=== PATIENT | male | born 1970 | race Caucasian/White ===

== ENCOUNTER 2017-07-16 12:05 | Emergency (ER) | payer OTHER ==
[~2017-07-16] VITALS: Ht 170.2 cm; Wt 111.1 kg
[~2017-07-16 12:05] MED LIST: ALLO100T56 PO; ALPR0.5T PO; COLC0.6T67 PO; OMEP20TA5 PO; SUCR1TAB31 PO
--- NOTE | 2017-07-16 12:55 | NUR ---
PT IS IN ROOM #2A. DR KOHLER EVALUATED THE PT.
--- NOTE | 2017-07-16 13:47 | NUR ---
PT WAS D/C TO HOME. D/C INSTRUCTIONS GIVEN TO THE PT.
[2017-07-16 13:49] VITALS: BP 136/79
== END 2017-07-16 13:50 | disposition home or self-care (01) ==
LOC: ER 12:05
DX: S16.1XXA Strain of muscle, fascia and tendon at neck level, initial encounter (principal); M47.892 Other spondylosis, cervical region; H57.10 Ocular pain, unspecified eye; V43.52XA Car driver injured in collision with other type car in traffic accident, initial encounter; Y93.89 Activity, other specified; Y99.8 Other external cause status; Y92.89 Other specified places as the place of occurrence of the external cause
CPT/HCPCS: 70450; 72125; 99284; A4663

== ENCOUNTER 2017-09-19 01:46 | Emergency (ER) | payer OTHER ==
[~2017-09-19] VITALS: Ht 170.2 cm; Wt 90.7 kg
[~2017-09-19 01:46] MED LIST changes: -ALPR0.5T PO; -COLC0.6T67 PO
[2017-09-19] MEDS ORDERED: MAG HYDROX/AL HYDROX/SIMETH 30 ML LIQUID UDC PO ONE (03:00)
[2017-09-19] MEDS ORDERED: LIDOCAINE VISCUS 2% 15 ML UDC MM ONE (03:00)
[2017-09-19] MEDS ORDERED: LIDOCAINE VISCUS 2% 15 ML UDC ONE (03:18)
[2017-09-19] MEDS ORDERED: MAG HYDROX/AL HYDROX/SIMETH 30 ML LIQUID UDC ONE (03:18)
--- NOTE | 2017-09-19 03:52 | NUR ---
Patient discharged to home in stable conditon. Written and verbal after care instructions given. Patient verbalizes understanding of instructions.
== END 2017-09-19 03:54 | disposition home or self-care (01) ==
LOC: ER 01:48
DX: T28.0XXA Burn of mouth and pharynx, initial encounter (principal); I10 Essential (primary) hypertension; K21.9 Gastro-esophageal reflux disease without esophagitis; M10.9 Gout, unspecified; Z87.891 Personal history of nicotine dependence; X11.8XXA Contact with other hot tap-water, initial encounter; Y93.89 Activity, other specified; Y92.89 Other specified places as the place of occurrence of the external cause; Y99.8 Other external cause status
CPT/HCPCS: 99283; A4663

== ENCOUNTER 2019-08-08 18:10 | Emergency (ER) | payer OTHER ==
[~2019-08-08] VITALS: Ht 170.2 cm; Wt 111.1 kg
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
--- NOTE | 2019-08-08 18:59 | NUR ---
ELIZA MCKNIGHT AT BEDSIDE FOR MSE.
--- NOTE | 2019-08-08 19:02 | NUR ---
SHIFT REPORT GIVEN TO NIXON Tate RN.
--- NOTE | 2019-08-08 19:12 | NUR ---
Patient changed into a gown, waiting for ERMD to evaluate.
[2019-08-08] MEDS ORDERED: ACETAMINOPHEN ES 500 MG TABLET PO ONE (19:30)
--- NOTE | 2019-08-08 19:31 | NUR ---
Patient transported to Radiology in stable condition.
[2019-08-08] MEDS ORDERED: ACETAMINOPHEN ES 500 MG TABLET ONE (19:32)
--- NOTE | 2019-08-08 19:55 | NUR ---
Marion lees in [facility] - 08/08/19 at 1955 by JESENIA Patient back in room from CT
--- NOTE | 2019-08-08 19:55 | NUR ---
Patient back in room from Radiology
--- NOTE | 2019-08-08 20:49 | NUR ---
Patient discharged to home in stable conditon. Written and verbal after care instructions given. Patient verbalizes understanding of instructions. Patient ambulated with stable gait.
[2019-08-08 20:51] VITALS: BP 121/92
== END 2019-08-08 21:03 | disposition home or self-care (01) ==
LOC: ER 18:15
DX: S13.4XXA Sprain of ligaments of cervical spine, initial encounter (principal); S33.5XXA Sprain of ligaments of lumbar spine, initial encounter; I10 Essential (primary) hypertension; K21.9 Gastro-esophageal reflux disease without esophagitis; Z87.891 Personal history of nicotine dependence; Z79.899 Other long term (current) drug therapy; V49.9XXA Car occupant (driver) (passenger) injured in unspecified traffic accident, initial encounter; Y93.89 Activity, other specified; Y92.89 Other specified places as the place of occurrence of the external cause; Y99.8 Other external cause status
CPT/HCPCS: 71046; 72050; A4663; A9150

== ENCOUNTER 2021-06-11 10:31 | Emergency (ER) | payer OTHER ==
[~2021-06-11] VITALS: Ht 170.2 cm; Wt 108.9 kg
[~2021-06-11 10:31] MED LIST changes: -SUCR1TAB31 PO
[2021-06-11] MEDS ORDERED: IV NORMAL SALINE 500 ML BAG IV ONE (11:30)
[2021-06-11] MEDS ORDERED: IOHEXOL 300MG/ML 100 ML INFUS..BTL ONE (11:45)
[2021-06-11] MEDS ORDERED: IV NORMAL SALINE 250 ML IV ONE (11:45)
[2021-06-11] MEDS ORDERED: SWABABLE VALVE TRANSFER SET EA MC ONE (11:45)
[2021-06-11 11:54] LABS: HEMATOCRIT 44.3 % (36.7-47.1); MEAN CORPUSCULAR HEMOGLOBIN 28.3 uug (23.8-33.4); MEAN CORPUSCULAR VOLUME 84.7 fL (73.0-96.2); PLATELET COUNT (AUTO) 213 K/uL (152-348)
[2021-06-11 12:00] LABS: CREATININE 1.1 mg/dL (0.6-1.3); POTASSIUM 4.5 mmol/L (3.5-5.1)
[2021-06-11 12:06] LABS: BILIRUBIN,TOTAL 0.4 mg/dL (0.2-1.0); TOTAL PROTEIN, SERUM 7.4 g/dL (6.4-8.2)
[2021-06-11 12:14] LABS: THYROID STIMULATING HORMONE 1.449 mIU/mL (0.358-3.740)
--- NOTE | 2021-06-11 14:00 | NUR ---
PT WAS EVALUATED BY DR BAKER. PT WAS D/C'd TO HOME. D/C INSTRUCTIONS GIVEN TO THE PT BY DR BAKER.
[2021-06-11 14:02] VITALS: BP 128/79
== END 2021-06-11 14:02 | disposition home or self-care (01) ==
LOC: ER 10:31
DX: J02.9 Acute pharyngitis, unspecified (principal); R13.10 Dysphagia, unspecified; Z87.891 Personal history of nicotine dependence; K21.9 Gastro-esophageal reflux disease without esophagitis; N40.0 Benign prostatic hyperplasia without lower urinary tract symptoms; M10.9 Gout, unspecified; I10 Essential (primary) hypertension; Z79.899 Other long term (current) drug therapy; R59.0 Localized enlarged lymph nodes
CPT/HCPCS: 36415; 70492; 80053; 84443; 85025; 87806; 96360; 99284; Q9967; A4663; J7030; J7050

== ENCOUNTER 2021-07-07 03:01 | Emergency (ER) | payer OTHER ==
[~2021-07-07] VITALS: Ht 170.2 cm; Wt 99.8 kg
--- NOTE | 2021-07-07 03:25 | NUR ---
Dr. Jarrell at bedside for MSE.
[2021-07-07] MEDS ORDERED: IBUP-1955 PO (03:44)
[2021-07-07 03:48] VITALS: BP 145/100
--- NOTE | 2021-07-07 03:48 | NUR ---
Patient discharged to home in stable condition. Written and verbal after care instructions given. Patient verbalizes understanding of instructions. Stressed follow up or return to ER for worsening s/s. Patient out of ER with steady gait, no acute signs of distress, VSS, all belongings taken.
== END 2021-07-07 03:48 | disposition home or self-care (01) ==
LOC: ER 03:03
DX: K14.0 Glossitis (principal); Z87.891 Personal history of nicotine dependence; I10 Essential (primary) hypertension; M10.9 Gout, unspecified; Z79.899 Other long term (current) drug therapy; K21.9 Gastro-esophageal reflux disease without esophagitis
CPT/HCPCS: A4663

== ENCOUNTER 2023-08-19 20:42 | Emergency (ER) | payer OTHER ==
[~2023-08-19] VITALS: Ht 170.2 cm; Wt 98.9 kg
[~2023-08-19 20:42] MED LIST changes: +IBUP-1955 PO
[2023-08-19] MEDS ORDERED: NEOMY/BACITRA/POLYMYXIN B OINT UD PACKET TP ONE ×2 (21:15→21:16)
[2023-08-19] MEDS ORDERED: TDAP DIPH,PERTUSS,TET VAC/PF 0.5 ML DISP.SYRIN IM ONE ×2 (21:15)
[2023-08-19] MEDS ORDERED: BACI500P4 TP (21:28)
[2023-08-19 21:40] VITALS: BP 128/61; TEMP 98.6; O2SAT 99
[2023-08-20] MEDS ORDERED: OMEP20TA5 PO (05:12)
[2023-08-20] MEDS ORDERED: SUCR1ORA4 PO (05:12)
== END 2023-08-19 21:41 | disposition home or self-care (01) ==
LOC: ER 20:44
DX: T20.24XA Burn of second degree of nose (septum), initial encounter (principal); I10 Essential (primary) hypertension; K21.9 Gastro-esophageal reflux disease without esophagitis; M10.9 Gout, unspecified; Z87.891 Personal history of nicotine dependence; Z79.1 Long term (current) use of non-steroidal anti-inflammatories (NSAID); Z79.899 Other long term (current) drug therapy; X19.XXXA Contact with other heat and hot substances, initial encounter; Y93.89 Activity, other specified; Y92.89 Other specified places as the place of occurrence of the external cause; Y99.8 Other external cause status
CPT/HCPCS: 90715; A4606; A4663

== ENCOUNTER 2023-08-20 03:37 | Emergency (ER) | payer OTHER ==
[~2023-08-20] VITALS: Ht 170.2 cm; Wt 98.9 kg
[~2023-08-20 03:37] MED LIST changes: +BACI500P4 TP
[2023-08-20 04:21] LABS: BASOPHILS % (AUTO) 0.6 % (0.0-2.0); EOSINOPHILS # (AUTO) 0.1 K/uL (0.0-0.7); EOSINOPHILS % (AUTO) 1.5 % (0.0-7.0); HEMATOCRIT 43.4 % (36.7-47.1); HEMOGLOBIN 14.8 g/dL (12.5-16.3); LYMPHOCYTES # (AUTO) 2.3 K/uL (0.8-4.8); LYMPHOCYTES % (AUTO) 27.9 % (20.5-51.5); MEAN CORPUSCULAR HEMOGLOBIN 28.1 uug (23.8-33.4); MEAN CORPUSCULAR HGB CONC 34 g/dL (32.5-36.3); MEAN CORPUSCULAR VOLUME 82.8 fL (73.0-96.2); MONOCYTES # (AUTO) 0.6 K/uL (0.1-1.30); MONOCYTES % (AUTO) 7.3 % (0.0-11.0); NEUTROPHILS # (AUTO) 5.2 K/uL (1.8-8.9); NEUTROPHILS % (AUTO) 62.7 % (38.5-71.5); PLATELET COUNT (AUTO) 197 K/uL (152-348); RED BLOOD CELL COUNT(AUTO) 5.24 MIL/uL (4.06-5.63); RED CELL DISTRIBUTION WIDTH 13.3 % (12.1-16.2); WHITE BLOOD COUNT (AUTO) 8.3 K/uL (3.6-10.2)
[2023-08-20 04:24] LABS: DIFFERENTIAL COMMENT 1
[2023-08-20 04:51] LABS: CALCIUM 8.7 mg/dL (8.5-10.1); CARBON DIOXIDE 23 mmol/L (21-32); CHLORIDE 101 mmol/L (98-107); CREATININE 1.2 mg/dL (0.6-1.3); GLUCOSE 98 mg/dL (74-106); POTASSIUM 3.4 mmol/L (3.5-5.1); SODIUM SERUM 137 mmol/L (136-145); UREA NITROGEN, BLOOD 20 mg/dL (7-18)
[2023-08-20 05:10] LABS: ALANINE AMINOTRANSFERASE 44 U/L (16-63); ALBUMIN 4.1 g/dL (3.4-5.0); ALKALINE PHOSPHATASE 87 U/L (50-136); ASPARTATE AMINOTRANSFERASE 22 U/L (15-37); BILIRUBIN,DIRECT 0.1 mg/dL (0.0-0.2); BILIRUBIN,TOTAL 0.7 mg/dL (0.2-1.0); NT-PRO BNP 16 pg/mL (0-125); TOTAL PROTEIN, SERUM 7.5 g/dL (6.4-8.2)
[2023-08-20] MEDS ORDERED: SUCR1ORA4 PO (05:12)
[2023-08-20] MEDS ORDERED: OMEP20TA5 PO (05:12)
[2023-08-20] MEDS ORDERED: LIDOCAINE VISCUS 2% 15 ML UDC ONE (05:29)
[2023-08-20] MEDS ORDERED: MAG HYDROX/AL HYDROX/SIMETH 30 ML LIQUID UDC ONE (05:29)
[2023-08-20] MEDS ORDERED: MAG HYDROX/AL HYDROX/SIMETH 30 ML LIQUID UDC PO ONE (05:30)
[2023-08-20] MEDS ORDERED: LIDOCAINE VISCUS 2% 15 ML UDC MM ONE (05:30)
[2023-08-20 05:53] VITALS: BP 143/99; O2SAT 97
== END 2023-08-20 05:53 | disposition home or self-care (01) ==
LOC: ER 03:41
DX: T20.24XA Burn of second degree of nose (septum), initial encounter (principal); R07.89 Other chest pain; I10 Essential (primary) hypertension; K21.9 Gastro-esophageal reflux disease without esophagitis; M10.9 Gout, unspecified; Z87.891 Personal history of nicotine dependence; Z79.1 Long term (current) use of non-steroidal anti-inflammatories (NSAID); Z79.899 Other long term (current) drug therapy; X19.XXXA Contact with other heat and hot substances, initial encounter; Y93.89 Activity, other specified; Y92.89 Other specified places as the place of occurrence of the external cause; Y99.8 Other external cause status
CPT/HCPCS: 36415; 71045; 84484; 85025; 85730; 93005; A4606; A4663

== ENCOUNTER 2024-11-30 05:46 | Emergency (ER) | payer OTHER ==
[~2024-11-30] VITALS: Ht 170.2 cm; Wt 99.8 kg
[~2024-11-30 05:46] MED LIST changes: +SUCR1ORA4 PO
[2024-11-30] MEDS ORDERED: FLUT16SP16 BNOSTRILS (06:23)
[2024-11-30] MEDS ORDERED: [UNRECOGNIZED DRUG - CODE] NS (06:23)
[2024-11-30] MEDS ORDERED: GUAI5SYR PO (06:23)
[2024-11-30 07:39] VITALS: BP 144/93; O2SAT 96
== END 2024-11-30 07:40 | disposition home or self-care (01) ==
LOC: ER 06:00
DX: J06.9 Acute upper respiratory infection, unspecified (principal); I11.9 Hypertensive heart disease without heart failure; K21.9 Gastro-esophageal reflux disease without esophagitis; M10.00 Idiopathic gout, unspecified site; F17.200 Nicotine dependence, unspecified, uncomplicated; Z79.899 Other long term (current) drug therapy; Z20.822 Contact with and (suspected) exposure to COVID-19
CPT/HCPCS: 71045; A4606; A4663